=== PATIENT | male | born 1975 | race Caucasian/White ===

== ENCOUNTER 2022-10-03 11:02 | Outpatient (CLI) | payer BC ==
[2022-10-03] MEDS ORDERED: Magnevist 469MG/ML 20 ML VIAL ONE (16:03)
== END 2022-10-03 11:03 | disposition home or self-care (01) ==
LOC: MRI 11:02
PROVIDERS: ATTEND Student in an Organized Health Care Education/Training Program
DX: I63.9 Cerebral infarction, unspecified (principal)
CPT/HCPCS: 70553; A9579

== ENCOUNTER 2023-02-12 11:29 | Outpatient (CLI) | payer BC | END 2023-02-12 11:30 | disposition home or self-care (01) | LOC: BICRAD 11:29 | PROVIDERS: ATTEND Student in an Organized Health Care Education/Training Program | DX: R07.81 Pleurodynia (principal); S22.41XD Multiple fractures of ribs, right side, subsequent encounter for fracture with routine healing ==

== ENCOUNTER 2023-03-04 08:00 | Outpatient (CLI) | payer BC | END 2023-03-04 08:01 | disposition home or self-care (01) | LOC: TBSIIMAG 08:00 | PROVIDERS: ATTEND Psychiatry & Neurology Neurology | DX: M54.16 Radiculopathy, lumbar region (principal); M47.816 Spondylosis without myelopathy or radiculopathy, lumbar region; M47.817 Spondylosis without myelopathy or radiculopathy, lumbosacral region | CPT/HCPCS: 72148 ==

== ENCOUNTER 2023-07-11 11:17 | Outpatient (CLI) | payer BC | END 2023-07-11 11:18 | disposition home or self-care (01) | LOC: BICRAD 11:17 | PROVIDERS: ATTEND Student in an Organized Health Care Education/Training Program | DX: M25.562 Pain in left knee (principal); M17.12 Unilateral primary osteoarthritis, left knee ==

== ENCOUNTER 2023-07-14 09:46 | Outpatient (CLI) | payer BC | END 2023-07-14 09:47 | disposition home or self-care (01) | LOC: RAD 09:46 | PROVIDERS: ATTEND Psychiatry & Neurology Neurology | DX: R13.19 Other dysphagia (principal); R53.1 Weakness | CPT/HCPCS: 74230 ==

== ENCOUNTER 2023-07-17 07:14 | Outpatient (CLI) | payer BC ==
[2023-07-17] MEDS ORDERED: Iopamidol 370 76% 100 ML VIAL ONE (10:58)
== END 2023-07-17 07:15 | disposition home or self-care (01) ==
LOC: CT 07:14
PROVIDERS: ATTEND Psychiatry & Neurology Neurology
DX: G70.00 Myasthenia gravis without (acute) exacerbation (principal)
CPT/HCPCS: 71270

== ENCOUNTER 2023-08-29 14:53 | Outpatient (CLI) | payer BC | END 2023-08-29 14:54 | disposition home or self-care (01) | PROVIDERS: ATTEND Student in an Organized Health Care Education/Training Program | DX: I63.9 Cerebral infarction, unspecified (principal) ==

== ENCOUNTER 2024-07-15 09:56 | Outpatient (CLI) | payer BC | END 2024-07-15 09:57 | disposition home or self-care (01) | LOC: RAD 09:56 | PROVIDERS: ATTEND Internal Medicine Critical Care Medicine | DX: R06.00 Dyspnea, unspecified (principal) | CPT/HCPCS: 71046 ==

== ENCOUNTER 2025-06-24 12:51 | Outpatient (CLI) | payer BC, MEDICARE | END 2025-06-24 12:52 | disposition home or self-care (01) | LOC: SCSMRI 12:51 | PROVIDERS: ATTEND Family Medicine | DX: G31.9 Degenerative disease of nervous system, unspecified (principal); R90.82 White matter disease, unspecified; R90.89 Other abnormal findings on diagnostic imaging of central nervous system; I73.9 Peripheral vascular disease, unspecified | CPT/HCPCS: 70551 ==